=== PATIENT | female | born 1980 | race African-American/Black ===

== ENCOUNTER 2016-12-23 21:58 | Emergency (ER) | payer OTHER ==
[~2016-12-23] VITALS: Ht 165.1 cm; Wt 131.5 kg
[~2016-12-23 21:58] MED LIST: CIPROFLOXACIN500 M1 PO; DIABETA 5MG TABL5 MG; DIABETA 5MG TABL5 MG PO; METOPROLOL SUCC25 M1; METOPROLOL SUCC25 M1 PO; NORCO 5-325 TA1 EACH PO; NYSTATIN15 GM TP; TRIAMCINOLONE A15 G2 TP
[2016-12-23] MEDS ORDERED: NAPROSYN500 MG PO (22:41)
[2016-12-23] MEDS ORDERED: TRAMADOL 50 MG50 MG PO (22:41)
[2016-12-23] MEDS ORDERED: LISINOPRIL10 MG PO (23:06)
[2016-12-23 23:57] VITALS: BP 165/97
== END 2016-12-24 | disposition home or self-care (01) ==
LOC: ER 21:58
DX: M54.41 Lumbago with sciatica, right side (principal)